=== PATIENT | male | born 1960 | race Caucasian/White ===

== ENCOUNTER 2017-10-04 11:23 | Observation (INO) ==
--- NOTE | 2017-10-04 11:29 | Emergency Department Note ---
Neuro HPI - General Chief Complaint: Neuro Symptoms/Deficit Stated Complaint: Slurred speech Time Seen by Provider: 10/04/17 11:26 - History of Present Illness HPI Narrative: In the last half hour to 45 minutes this patient was noted by his to have slurred speech perhaps some left facial droop and possible numbness in the right arm. All the symptoms have resolved. Patient has no history of stroke coronary artery disease. Does have a history of hypertension and mild COPD. He has had a slight headache for the last several days. He takes no blood thinners. Patient did have a screening of his carotid arteries and last 3 months it is reported be normal. - Related Data Home Medications: Home Medications Medication Instructions Recorded Confirmed Losartan [Cozaar] 100 mg PO DAILY 10/04/17 10/04/17 Allergies/Adverse Reactions: Allergies Allergy/AdvReac Type Severity Reaction Status Date / Time No Known Drug Allergies Allergy Unverified 10/04/17 11:24 Review of Systems All systems ED: reviewed and negative except as stated. Past Medical History - Past Medical History Medical history: Reports: COPD, hypertension Physical Exam Limitations: no limitations General appearance: alert Head: atraumatic Eye: Present: normal appearance ENT: normal exam Neck: Present: normal inspection Chest: Present: normal inspection Respiratory: Present: normal lung sounds bilaterally Cardiovascular: Present: regular rate, normal rhythm, normal heart sounds Abdominal: Present: soft. Absent: distention, tenderness Neurological: Present: alert Speech: Present: fluid speech Cranial nerves: facial palsy (VII): Normal Cerebellar function: finger to nose: Normal Motor strength - LUE: 5/5 Motor strength - RUE: 5/5 Motor strength - LLE: 5/5 Motor strength - RLE: 5/5 Psychiatric: Present: normal affect, normal mood Skin: Present: warm, dry, intact Course Vital Signs Temperature 98.3 F 10/04/17 11:24 Pulse Rate 78 10/04/17 11:24 Respiratory Rate 18 10/04/17 11:24 Blood Pressure 163/103 10/04/17 11:24 Pulse Oximetry (%) 98 10/04/17 11:24 Temperature 98.3 F 10/04/17 11:24 Pulse Rate 69 10/04/17 12:22 Respiratory Rate 13 10/04/17 12:22 Blood Pressure 149/101 10/04/17 12:16 Pulse Oximetry (%) 96 10/04/17 12:22 Neuro Symptoms/Deficit - MDM Narrative Medical decision making narrative: CT scan lab work were normal. Patient is an ABCD score of 4 but an NIH of 0 currently. We will admit him to the hospital as a TIA for further workup. - Lab Data Lab results reviewed: Yes I reviewed the patient's lab results. Result diagrams: 10/04/17 11:35 10/04/17 11:35 Lab Results 10/04/17 10/04/17 10/04/17 Range/Units 11:35 11:35 11:35 WBC 10.6 (4.5-11.0) K/mcL RBC 5.30 (4.50-5.90) M/mcL Hgb 16.2 (13.5-16.5) g/dL Hct 48.3 (41.0-55.0) % POC Hct 49.0 (41.0-55.0) % MCV 91.3 (80.0-100.0) fL MCH 30.6 (26.0-34.0) pg MCHC 33.5 (31.0-36.0) g/dL RDW 13.8 (11.5-14.5) % Plt Count 249 (140-440) K/mcL MPV 8.2 (7.4-10.4) fL Gran % 60.8 (38.0-78.0) % Lymph % (Auto) 29.4 (15.5-49.0) % [place] % (Auto) 6.9 (1.0-12.0) % Eos % (Auto) 2.4 (0.0-7.0) % Baso % (Auto) 0.5 (0.0-2.0) % Gran # 6.4 (1.8-8.0) K/mcL Lymph # (Auto) 3.1 (1.5-4.8) K/mcL [place] # (Auto) 0.7 (0.1-0.9) K/mcL Eos # (Auto) 0.3 (0.0-0.7) K/mcL Baso # (Auto) 0.1 (0.0-0.3) K/mcL POC PT 11.4 L (11.9-14.5) sec POC INR 0.9 (0.9-1.2) APTT 28 (20-37) sec POC Sodium 138 (133-145) mmol/L Sodium 137 (133-145) mmol/L POC Potassium 3.7 (3.3-5.1) mmol/L Potassium 3.7 (3.3-5.1) mmol/L POC Chloride 97 (96-108) mmol/L Chloride 96 (96-108) mmol/L Carbon Dioxide 28 (22-30) mmol/L POC Total CO2 32 H (22-30) mmol/L Anion Gap 13.0 (8-16) POC BUN 20 (6-20) mg/dl BUN 16 (6-20) mg/dl Creatinine 1.0 (0.7-1.2) mg/dl POC Creatinine 1.0 (0.7-1.2) mg/dl GFR Calculation 83 Glucose 97 (70-105) mg/dL POC Glucose 99 (70-105) mg/dL Calcium 9.2 (8.6-10.4) mg/dl POC WB Ioniz Calcium 1.06 L (1.16-1.32) mmol/L Total Bilirubin 0.6 (0.0-1.0) mg/dL AST 24 (0-37) U/l ALT 27 (0-40) U/l Alkaline Phosphatase 114 (39-117) U/L Troponin T (0-0.03) ng/ml Total Protein 7.3 (5.9-8.4) gm/dL Albumin 4.2 (3.2-5.2) gm/dL Globulin 3.1 (2.2-3.7) gm/dL Albumin/Globulin Ratio 1.4 (1.0-2.3) 10/04/17 Range/Units 11:35 WBC (4.5-11.0) K/mcL RBC (4.50-5.90) M/mcL Hgb (13.5-16.5) g/dL Hct (41.0-55.0) % POC Hct (41.0-55.0) % MCV (80.0-100.0) fL MCH (26.0-34.0) pg MCHC (31.0-36.0) g/dL RDW (11.5-14.5) % Plt Count (140-440) K/mcL MPV (7.4-10.4) fL Gran % (38.0-78.0) % Lymph % (Auto) (15.5-49.0) % [place] % (Auto) (1.0-12.0) % Eos % (Auto) (0.0-7.0) % Baso % (Auto) (0.0-2.0) % Gran # (1.8-8.0) K/mcL Lymph # (Auto) (1.5-4.8) K/mcL [place] # (Auto) (0.1-0.9) K/mcL Eos # (Auto) (0.0-0.7) K/mcL Baso # (Auto) (0.0-0.3) K/mcL POC PT (11.9-14.5) sec POC INR (0.9-1.2) APTT (20-37) sec POC Sodium (133-145) mmol/L Sodium (133-145) mmol/L POC Potassium (3.3-5.1) mmol/L Potassium (3.3-5.1) mmol/L POC Chloride (96-108) mmol/L Chloride (96-108) mmol/L Carbon Dioxide (22-30) mmol/L POC Total CO2 (22-30) mmol/L Anion Gap (8-16) POC BUN (6-20) mg/dl BUN (6-20) mg/dl Creatinine (0.7-1.2) mg/dl POC Creatinine (0.7-1.2) mg/dl GFR Calculation Glucose (70-105) mg/dL POC Glucose (70-105) mg/dL Calcium (8.6-10.4) mg/dl POC WB Ioniz Calcium (1.16-1.32) mmol/L Total Bilirubin (0.0-1.0) mg/dL AST (0-37) U/l ALT (0-40) U/l Alkaline Phosphatase (39-117) U/L Troponin T < 0.01 (0-0.03) ng/ml Total Protein (5.9-8.4) gm/dL Albumin (3.2-5.2) gm/dL Globulin (2.2-3.7) gm/dL Albumin/Globulin Ratio (1.0-2.3) - Radiology Data Radiology results reviewed: Yes I reviewed the patient's radiology results. Disposition Pt seen by ACCOUNTING INSTRUCTOR/PA only: No Clinical Impression: Transient cerebral ischemia Disposition: Xfer As Outpt/Obs ([facility]) Condition: Good Referrals: Tarik Estrada ARNP [Primary Care Provider] - Time of Disposition: 12:41
--- NOTE | 2017-10-04 11:38 | Cat Scan Report ---
CLINICAL INFORMATION: Code stroke COMPARISON: None. TECHNIQUE: 2.5 mm helical slices were obtained in the skull base to vertex. Following reconstruction, axial reformatted images were reviewed at bone and parenchymal windows. The exam was performed using radiation dose optimization techniques including, but not limited to, automated exposure control, adjustment of the mA and/or kV according to patient size and use of iterative reconstruction technique. FINDINGS: The ventricles, sulci, fissures, and cisterns are normal in size and configuration. No extra-axial fluid collections are identified. The cerebrum, brainstem and cerebellum are unremarkable. There is no evidence of hemorrhage, mass effect, or edema. Bone windows show no osseous abnormality. IMPRESSION: Normal head CT without contrast. Interpreted and Authenticated by: Dennys Lawrecne 10/04/17
[2017-10-04 12:01] LABS: Basophils # (Auto) 0.1 K/mcL (0.0-0.3); Basophils % (Auto) 0.5 % (0.0-2.0); Eosinophils # (Auto) 0.3 K/mcL (0.0-0.7); Eosinophils % (Auto) 2.4 % (0.0-7.0); Granulocytes % (Auto) 60.8 % (38.0-78.0); Lymphocytes # (Auto) 3.1 K/mcL (1.5-4.8); Lymphocytes % (Auto) 29.4 % (15.5-49.0); Mean Cell Volume 91.3 fL (80.0-100.0); Mean Corpuscular HGB Conc 33.5 g/dL (31.0-36.0); Mean Corpuscular Hemoglobin 30.6 pg (26.0-34.0); Monocytes # (Auto) 0.7 K/mcL (0.1-0.9); Monocytes % (Auto) 6.9 % (1.0-12.0); Platelet Count 249 K/mcL (140-440); Red Cell Distribution Width 13.8 % (11.5-14.5)
[2017-10-04 12:21] LABS: ALT/SGPT 27 U/l (0-40); Albumin 4.2 gm/dL (3.2-5.2); Albumin/Globulin Ratio 1.4 (1.0-2.3); Alkaline Phosphatase 114 U/L (39-117); Blood Urea Nitrogen 16 mg/dl (6-20)
[2017-10-04] MEDS ORDERED: METOCLOPRAMIDE 10 MG/2 ML VIAL IV ONE (12:31)
[2017-10-04] MEDS ORDERED: HYDROmorphone 2 MG/ML VIAL IV PRN (12:31)
[2017-10-04] MEDS ORDERED: diphenhydrAMINE 50 MG/ML VIAL IV ONE (12:31)
[2017-10-04] MEDS ORDERED: ONDANSETRON 4 MG/2 ML VIAL IV ONE (12:31)
[2017-10-04] MEDS ORDERED: LACTATED RINGERS 1,000 ML IV ONE (12:53)
[2017-10-04 14:41] LABS: Appearance,Urine CLEAR; Bilirubin,Urine NEG (NEG); Color,Urine YELLOW; Glucose,Urine (UA) NEGATIVE (NEG); Leukocyte Esterase,Urine NEG /uL (NEG); Protein,Urine NEG (NEG); Specific Gravity,Urine 1.019 (1.000-1.035); Urine Blood NEG mg/dL (<0.03); Urobilinogen,Urine NEG (NEG)
[2017-10-04] MEDS ORDERED: GADOBUTROL 15 MMOL/15 ML VIAL IV ONE (14:49)
[2017-10-04] MEDS ORDERED: ACETAMINOPHEN 325 MG TABLET PO PRN (15:17)
[2017-10-04 16:00] LABS: Hemoglobin A1C 5.7 % HGB (4.0-6.0)
[2017-10-04] MEDS: oxyCODONE/APAP 5/325MG TABLET PO PRN ×2 (16:27→21:09)
[2017-10-04] MEDS: 0.9 % SODIUM CHLORIDE 10 ML SYRINGE IV SCH ×3 (16:30→22:06)
--- NOTE | 2017-10-04 16:53 | Internal Med History&Physical ---
Medical - H&P: HPI Patient information: Note initiated : 10/04/17 at 4:53 pm Service Date, if different from initiated Date: [] Patient: Abilio Prasad 57 y/o M admitted on 10/04/17 for Slurred speech. Chief Complaint: Garbled speech and left facial droop History of present illness: The patient is a 57-year-old male with a history of hypertension, COPD, depression, cervical spinal fusion who presents with having experienced left facial drooping and speech disruption. Patient states that he developed a headache 6 days prior to presentation. This was about 3 days after having cataract surgery. On the day the headache started , is up to 9/10 in intensity had a fever to 102. He's had no further fever, however his headache has persisted. Originally it was frontal, though he gets pain on the top of his head when he coughs. This improves overnight, is mild when he awakes but by afternoon it's up to 9/10 in intensity. He's had some nausea associated with it, is also had worsening of it when he bends over. Sometimes he feels dizzy, but which she feels his equilibrium is off. In the setting of this, this morning, while lying on the couch document his , his speech suddenly became garbled and she noticed that the left side of his face was drooping. He also reported transient right arm numbness, stating it felt "". He does not have much recall this, but his , who is a nurse, gives good history. She estimates it lasted about 3 minutes. During this time , his motor strength was equal on both sides. Patient has not had similar episodes before. He's had paresthesias and arm symptoms associated with his cervical spine in the past. He's had multilevel fusion done on that. He had a carotid ultrasound done, sounds like it was for screening reasons a while ago which was reported with a partial blockage, however he follow-up ultrasound 6 months ago showed no blockage. 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 Patient does not have a history of central cerebrovascular disease. No history of coronary disease or peripheral arterial disease. No history of headache, no history of migraine. Patient has chronic lower back pain, has had epidural injections. This is been unchanged. No further fever. No rhinorrhea, no sinus congestion, no sore throat, no cough or sputum production, no emesis, no diarrhea, no abdominal pain. No history of diabetes, no history of thyroid disease. Last time his cholesterol was checked it was not requiring treatment. Patient's pain hospitalized for monitoring and further evaluation of transient ischemic attack. 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 He chews tobacco, stopped smoking 4-5 years ago. He occasionally drinks beer. Medical - H&P: Meds Home Medications Medication Instructions Recorded Confirmed Type Albuterol Sulfate [Ventolin] 2 puff INH Q4HP PRN 10/04/17 10/04/17 History Aspirin [Adult Low Dose Aspirin EC] 81 mg PO DAILY 10/04/17 10/04/17 History Baclofen [Lioresal] 10 mg PO QHS 10/04/17 10/04/17 History Losartan [Cozaar] 100 mg PO DAILY 10/04/17 10/04/17 History Pantoprazole [Protonix] 40 mg PO QAMAC 10/04/17 10/04/17 History Pregabalin [Lyrica] 75 mg PO DAILY 10/04/17 10/04/17 History Stiolto Respimat Inhal [place] 2 inh QDAY 10/04/17 10/04/17 History Vitamin D3 Complete Caplet 10,000 unit PO QDAY 10/04/17 10/04/17 History buPROPion [Wellbutrin] 75 mg PO DAILY 10/04/17 10/04/17 History Allergies Allergy/AdvReac Type Severity Reaction Status Date / Time No Known Drug Allergies Allergy Unverified 10/04/17 11:24 Medical - H&P: Exam - Constitutional Vitals: Temp Pulse Resp BP Pulse Ox 98.4 F 79 16 151/71 96 10/04/17 15:17 10/04/17 14:45 10/04/17 15:17 10/04/17 15:17 10/04/17 15:17 GENERAL: Alert, in no acute distress. Cooperative, appears stated age. HEENT: Atraumatic. Pupils 5 mm and briskly reactive to direct and indirect light. Extraocular movements are intact without vertical nystagmus, few beats of physiologic nystagmus bilaterally. Face is symmetric. Tongue is midline, palate rises symmetrically. Strength in the face, tongue and shoulder shrug is 5/5. Oropharynx is without erythema or exudate. NECK: Supple without meningismus, no thyromegaly RESPIRATORY: Breath sounds clear bilaterally without wheezes or rhonchi. Respiratory effort is unlabored. CARDIOVASCULAR: Regular rate and rhythm, no murmur gallop or rub. No peripheral edema. Carotid pulses 2+ without bruit. Pedal pulses 2+. GI: Abdomen soft, nontender, no guarding or rebound. Bowel sounds are present. No hepatosplenomegaly. LYMPHATIC: No cervical or supraclavicular lymphadenopathy MUSCULOSKELETAL: No joint erythema or swelling, normal range of motion in all 4 extremities. Muscle mass normal. SKIN: Intact, warm, dry. No lesions. Skin turgor normal. NEUROLOGIC: Cranial nerves II through XII tested and intact as described above. Motor is 5/5 at the site leader, biceps, triceps, hip flexors, knee flexors and extensors, ankle flexors and extensors. Deep tendon reflexes are 3+ at the patella bilaterally, 2+ at the biceps bilaterally. Muscle tone is normal. Finger to nose testing is intact bilaterally, heel to goetz is intact bilaterally. There is no pronator drift. PSYCHIATRIC: Alert, oriented x3, normal affect, normal insight. Medical - H&P: Reslt - Labs CBC & Chem 7: 10/04/17 11:35 10/04/17 11:35 Labs: Short CBC 10/04/17 Range/Units 11:35 WBC 10.6 (4.5-11.0) K/mcL Hgb 16.2 (13.5-16.5) g/dL Hct 48.3 (41.0-55.0) % Plt Count 249 (140-440) K/mcL BMP 10/04/17 11:35 Sodium 137 Potassium 3.7 Chloride 96 Carbon Dioxide 28 BUN 16 Creatinine 1.0 Glucose 97 Calcium 9.2 Cardiac Enzymes 10/04/17 Range/Units 11:35 Troponin T < 0.01 (0-0.03) ng/ml Liver Function 10/04/17 Range/Units 11:35 Total Bilirubin 0.6 (0.0-1.0) mg/dL AST 24 (0-37) U/l ALT 27 (0-40) U/l Alkaline Phosphatase 114 (39-117) U/L Albumin 4.2 (3.2-5.2) gm/dL Urine 10/04/17 Range/Units 13:42 Urine Color Yellow Urine Appearance Clear Urine pH 6.0 (5.0-9.0) Ur Specific [place] 1.019 (1.000-1.035) Urine Protein Neg (NEG) mg/dL Urine Glucose (UA) Negative (NEG) mg/dL - EKG Data -: EKG Reviewed by Myself - Imaging and Cardiology CT scan - head Status: image reviewed by me Additional comments: FINDINGS: The ventricles, sulci, fissures, and cisterns are normal in size and configuration. No extra-axial fluid collections are identified. The cerebrum, brainstem and cerebellum are unremarkable. There is no evidence of hemorrhage, mass effect, or edema. Bone windows show no osseous abnormality. IMPRESSION: Normal head CT without contrast. Medical - H&P: A/P (1) Transient cerebral ischemia Current visit: Yes Status: Acute (2) Hypertension Current visit: Yes Status: Acute (3) Headache Current visit: Yes Status: Acute - Narrative A/P Narrative: 57-year-old male presents with transient dysarthria/garbled speech as well as left facial droop, resolved spontaneously prior to admission. Suspicious for transient ischemic attack. TIA. Concern for cerebral ischemia. Risk factors include hypertension and history of smoking. Neurologic exam is normal at this point. Plan: Observation hospitalization, MRI to evaluate for definitive evidence of stroke, MRA to evaluate cerebral circulation, echocardiogram to evaluate for embolic source, telemetry monitoring for arrhythmia. Currently no need for therapy intervention as he is back to baseline. Add statin to his therapy, check lipid profile in the morning. Hypertension. Blood pressure initially a bit elevated, could be secondary to transient cerebral ischemia. For now will monitor, allow some permissive hypertension and not treat too aggressively. Plan: Continue with his home losartan, do not aggressively control blood pressure in the first 24 hours. Headache. Unclear etiology. No history of migraine. His symptoms today could be related to a headache syndrome. No obvious abnormalities, no evidence of hemorrhage on CT. MRI may more definitively evaluate for underlying abnormality. Plan: Symptomatic control, MRI as above. Prophylaxis: No need for DVT prophylaxis, low risk and ambulatory. CODE STATUS: Full code. Medical - H&P: Qual - Stroke Onset of Symptoms Date: 10/04/17 Onset of Symptoms Time: 12:00 Symptom Onset Unknown: No - VTE Deep Vein Thrombosis/Pulmonary Embolism Present on Admission: No
[2017-10-04] MEDS: LORazepam 2 MG/ML VIAL IV PRN (18:05)
[2017-10-04] MEDS: ATORVASTATIN 20 MG TABLET PO SCH (20:58)
[2017-10-05 06:02] LABS: HDL Cholesterol 33 mg/dl (>40); LDL Cholesterol,Calculated 81 mg/dl (SEE CHART)
--- NOTE | 2017-10-05 06:49 | Magnetic Resonance Report ---
CLINICAL INFORMATION: TIA COMPARISON: None. TECHNIQUE:2D and [id number] and 3D MOTSA tutc-[id number] images were obtained prior to gadolinium. Following gadolinium, coronal 3D [id number] images were acquired. FINDINGS: The thoracic aortic arch is normal in contour/caliber and aortic branching is conventional. There is a 50% focal stenosis in the mid right common carotid artery and a 50% stenosis in the mid left common carotid artery. In addition, a 50% stenosis is seen in the proximal right internal carotid artery with a 40% stenosis seen at the left internal carotid artery origin. IMPRESSION: Mild stenoses in both mid common and proximal internal carotid arteries - as described Interpreted and Authenticated by: Dennys Lawrence 10/05/17
--- NOTE | 2017-10-05 06:53 | Magnetic Resonance Report ---
CLINICAL INFORMATION: TIA upper extremity weakness COMPARISON: None. TECHNIQUE:Sagittal T1 FLAIR, axial T1 FLAIR, T2 FLAIR propeller, T2 propeller, gradient, diffusion, ADC and coronal T2 weighted images were acquired. FINDINGS: The ventricles, sulci, fissures and cisterns show mild symmetric enlargement compatible with minimal age-related atrophy - no extra-axial fluid collections or masses are appreciated. Scattered chronic ischemic foci in the the cerebral white matter are typical for age. There is a 5 mm remote lacunar infarct in the left frontal white matter - adjacent to the frontal horn of the left lateral ventricle. There are no regions of restricted diffusion to suggest acute infarct. No edema, hemorrhage or mass effect. Signal void in intracerebral arteries, extra-axial cranial nerves, pituitary and orbits are normal. 2.3 cm polyp in the right maxillary sinus appreciated. There is also moderate left and mild right mastoiditis IMPRESSION: 1. No evidence of acute infarct, hemorrhage or other acute intracerebral abnormality 2. Mild atrophy and scattered chronic ischemic changes in the cerebral white matter typical for age 3. 5 mm remote lacunar infarct in the deep periventricular left frontal white matter 4. Moderate left and mild right mastoiditis. 5. 2.2 cm polyp right maxillary sinus - other paranasal sinuses are clear Interpreted and Authenticated by: Dennys Lawrence 10/05/17
--- NOTE | 2017-10-05 06:56 | Magnetic Resonance Report ---
CLINICAL INFORMATION: TIA COMPARISON: None. TECHNIQUE: 3D [id number] SPGR was used to study the cerebral vasculature. FINDINGS: The intracranial internal carotid, vertebral and basilar arteries are unremarkable. There is a 50% stenoses in the inferior division of M2 left middle cerebral artery. The P1 segment of the left posterior cerebral arteries and hypoplastic, but a normal left posterior cerebral artery has an embryonic origin off the supraclinoid left ICA. The remainder of the anterior, middle and posterior arteries and branches are unremarkable. IMPRESSION: 1. 50% stenosis inferior division left M2 middle cerebral artery. 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 This is a congenital variant Interpreted and Authenticated by: Dennys Lawrence 10/05/17
[2017-10-05] MEDS: PANTOPRAZOLE 40 MG TABLET PO SCH (08:10)
[2017-10-05] MEDS: PREGABALIN 75 MG CAPSULE PO SCH (08:24)
[2017-10-05] MEDS: 0.9 % SODIUM CHLORIDE 10 ML SYRINGE IV SCH ×3 (08:24→21:46)
[2017-10-05] MEDS: oxyCODONE/APAP 5/325MG TABLET PO PRN ×2 (08:24→17:09)
[2017-10-05] MEDS: ONDANSETRON 4 MG/2 ML VIAL IV PRN (08:24)
[2017-10-05] MEDS: ASPIRIN 325 MG ENTERIC COATED TABLET PO SCH (08:25)
[2017-10-05] MEDS: LOSARTAN 50 MG TABLET PO SCH (08:25)
--- NOTE | 2017-10-05 13:46 | XRay Report ---
CLINICAL INFORMATION: Fever and obtundation - evaluate for meningitis. TECHNIQUE: The procedure and risks including the possibility of bleeding, infection, CSF leak requiring blood patch were explained to the patient. They understood and wished to proceed. Under fluoroscopic guidance, the right L2-3 intralaminar space was marked, prepped and locally anesthetized with 1% Lidocaine using a 25 gauge needle. A 22 gauge spinal needle was placed under fluoroscopy through the intralaminar space into the thecal sac. Approximately six cc of clear CSF was aspirated and sent to pathology for requested studies. There was no apparent complication. The patient tolerated procedure well. IMPRESSION: Successful fluoroscopic guided lumbar puncture yielding 6 cc of clear CSF. No apparent complications. Interpreted and Authenticated by: Dennys Lawrence 10/05/17
[2017-10-05 14:54] LABS: Glucose,CSF 52 mg/dL (45-75)
[2017-10-05 15:42] LABS: Appearance,CSF HAZY; Nucleated Cells,CSF 150 /cumm (0-5); Red Blood Cell,CSF 823 /cumm (0-1)
[2017-10-05 15:54] LABS: Lymphocytes,CSF 79 % (40-80); Monocytes,CSF 20 % (15-45); Neutrophils,CSF 1 % (0-6); Total Cell Ct,CSF 100
[2017-10-05] MEDS: buPROPion 75 MG TABLET PO SCH (16:07)
[2017-10-05] MEDS ORDERED: KETOROLAC 30 MG/ML VIAL IV ONE (16:30)
[2017-10-05] MEDS ORDERED: KETOROLAC 15 MG/ML VIAL ONE (17:11)
--- NOTE | 2017-10-05 17:45 | Internal Med Progress Note ---
Medical - PN: Subj Patient information: Note initiated : 10/05/17 at 5:42 pm Service Date, if different from initiated Date: [] Patient: Abilio Prasad 57 y/o M admitted on 10/04/17 for Slurred speech. Chief Complaint: f/u TIA Interval history: 10/04 The patient is a 57-year-old male with a history of hypertension, COPD, depression, cervical spinal fusion who presents with having experienced left facial drooping and speech disruption. Patient states that he developed a headache 6 days prior to presentation. This was about 3 days after having cataract surgery. On the day the headache started , is up to 9/10 in intensity had a fever to 102. He's had no further fever, however his headache has persisted. Originally it was frontal, though he gets pain on the top of his head when he coughs. This improves overnight, is mild when he awakes but by afternoon it's up to 9/10 in intensity. He's had some nausea associated with it, is also had worsening of it when he bends over. Sometimes he feels dizzy, but which she feels his equilibrium is off. In the setting of this, this morning, while lying on the couch document his , his speech suddenly became garbled and she noticed that the left side of his face was drooping. He also reported transient right arm numbness, stating it felt "". He does not have much recall this, but his , who is a nurse, gives good history. She estimates it lasted about 3 minutes. During this time , his motor strength was equal on both sides. Patient has not had similar episodes before. He's had paresthesias and arm symptoms associated with his cervical spine in the past. He's had multilevel fusion done on that. He had a carotid ultrasound done, sounds like it was for screening reasons a while ago which was reported with a partial blockage, however he follow-up ultrasound 6 months ago showed no blockage. 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 Patient does not have a history of central cerebrovascular disease. No history of coronary disease or peripheral arterial disease. No history of headache, no history of migraine. Patient has chronic lower back pain, has had epidural injections. This is been unchanged. No further fever. No rhinorrhea, no sinus congestion, no sore throat, no cough or sputum production, no emesis, no diarrhea, no abdominal pain. No history of diabetes, no history of thyroid disease. Last time his cholesterol was checked it was not requiring treatment. Patient's being hospitalized for monitoring and further evaluation of transient ischemic attack. 10/06 Neurologically has remained stable and nonfocal. Tele is NSR. His headache persists. Further history is obtained, he had fever for about 36 hours after his headache started. He now reports that he had some stiffness of his neck at the time. He mentioned that to his previously. MRI is without evidence of ischemia or infarction. MRA of the head with 50% stenosis in the inferior branch of the left MCA and congenital variant of left vertebral. MRA of the neck with mild stenoses. Given his history of fever, headache, neck stiffness occurring a week ago with persistent headache, LP is ordered. - Constitutional Vitals: Vital Signs Temp Pulse Resp BP Pulse Ox 97.8 F 64 16 162/87 93 10/05/17 15:00 10/05/17 08:00 10/05/17 15:00 10/05/17 15:00 10/05/17 15:00 Period Temp Pulse Resp BP Sys/Wilhelm Pulse Ox Last 24 Hr 97.8 F-98.8 F 64-74 16-20 131-166/80-93 92-98 Intake and Output 10/05/17 10/05/17 10/05/17 05:59 13:59 21:59 Intake Total 700 / 700 0 / 0 640 / 640 Output Total 325 / 325 Balance 375 / 375 0 / 0 640 / 640 Intake & Output: Intake & Output 10/05/17 10/05/17 10/05/17 05:59 13:59 21:59 Intake Total 700 / 700 0 / 0 640 / 640 Output Total 325 / 325 Balance 375 / 375 0 / 0 640 / 640 Intake: Oral 700 / 700 0 / 0 640 / 640 Output: Void Amount 325 / 325 Other: Meal Breakfast Percent of Meal Consumed Refused # Voids 1 4 Exam: General: Comfortable, no distress Chest: Clear, unlabored Microvascular: Regular, no murmur Abdomen: Soft, nontender Neuro: Alert, oriented to person, place, situation. Face is symmetric. Speech is fluent. Strength 5/5 in left and right. Medical - PN: Obj Da - Labs CBC & Chem 7: 10/04/17 11:35 10/04/17 11:35 Labs: Abnormal Lab Results 10/05/17 10/05/17 10/04/17 13:08 03:45 11:35 POC PT POC Total CO2 32 H POC WB Ioniz Calcium 1.06 L HDL Cholesterol 33 L CSF RBC 823 H CSF Total Nucleated Auto 150 H CSF Total Protein 309 H 10/04/17 11:35 POC PT 11.4 L POC Total CO2 POC WB Ioniz Calcium HDL Cholesterol CSF RBC CSF Total Nucleated Auto CSF Total Protein Meds: Medications Acetaminophen (Tylenol) 650 mg PO Q6HP PRN PRN Reason: PAIN/FEVER > 101 Aspirin (Ecotrin) 325 mg PO DAILY [facility] Last Admin: 10/05/17 08:25 Dose: 325 mg Atorvastatin Calcium (Lipitor) 40 mg PO HS [facility] Last Admin: 10/04/17 20:58 Dose: 40 mg Bupropion HCl (Wellbutrin) 75 mg PO DAILY [facility] Last Admin: 10/05/17 16:07 Dose: 75 mg Ketorolac Tromethamine (Toradol) 30 mg IV ONCE ONE Stop: 10/05/17 16:31 Last Admin: 10/05/17 17:10 Dose: 30 mg Lorazepam (Ativan) 1 mg IV Q2-4HP PRN PRN Reason: ANXIETY/SEDATION Last Admin: 10/04/17 18:05 Dose: 1 mg Losartan Potassium (Cozaar) 100 mg PO DAILY [facility] Last Admin: 10/05/17 08:25 Dose: 100 mg Morphine Sulfate (Morphine) 5 mg IV Q2HP PRN PRN Reason: Pain Last Admin: 10/05/17 14:32 Dose: 5 mg Ondansetron HCl (Zofran) 4 mg IV Q4HP PRN PRN Reason: Nausea And Vomiting Last Admin: 10/05/17 08:24 Dose: 4 mg Oxycodone/Acetaminophen (Percocet 5-325 Mg) 1 tab PO Q4HP PRN PRN Reason: PAIN LEVEL 3-6 Last Admin: 10/05/17 17:09 Dose: 1 tab Pantoprazole Sodium (Protonix) 40 mg PO QAMAC [facility] Last Admin: 10/05/17 08:10 Dose: 40 mg Stiolto Respimat (Inhaler) 2 dose INH QDAY [facility] Last Admin: 10/05/17 11:52 Dose: Not Given Prednisolone Acetate (Pred Forte Ophth Drops) 1 gtt OD QIDP [facility] Pregabalin (Lyrica) 75 mg PO DAILY [facility] Last Admin: 10/05/17 08:24 Dose: 75 mg Sodium Chloride (Saline Flush) 10 ml IV Q8 [facility] Last Admin: 10/05/17 16:08 Dose: 10 ml - Impressions MRI Brain IMPRESSION: 1. No evidence of acute infarct, hemorrhage or other acute intracerebral abnormality 2. Mild atrophy and scattered chronic ischemic changes in the cerebral white matter typical for age 3. 5 mm remote lacunar infarct in the deep periventricular left frontal white matter 4. Moderate left and mild right mastoiditis. 5. 2.2 cm polyp right maxillary sinus - other paranasal sinuses are clear MRA Head IMPRESSION: 1. 50% stenosis inferior division left M2 middle cerebral artery. 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 This is a congenital variant MRA Neck FINDINGS: The thoracic aortic arch is normal in contour/caliber and aortic branching is conventional. There is a 50% focal stenosis in the mid right common carotid artery and a 50% stenosis in the mid left common carotid artery. In addition, a 50% stenosis is seen in the proximal right internal carotid artery with a 40% stenosis seen at the left internal carotid artery origin. IMPRESSION: Mild stenoses in both mid common and proximal internal carotid arteries- as described Echo Pending Medical - PN: A/P - Time Spent With Patient Total time spent is greater than 50% in coordination of care (as documented) at patient's floor/unit and/or counseling patient: Greater than 35 minutes (1) Transient cerebral ischemia Status: Acute Current Visit: Yes (2) Hypertension Status: Acute Current Visit: Yes (3) Headache Status: Acute Current Visit: Yes - Narrative A/P Narrative: 57-year-old male presents with transient dysarthria/garbled speech as well as left facial droop, resolved spontaneously prior to admission. Suspicious for transient ischemic attack. TIA. Concern remains that this was a TIA. Unclear if related to 50% stenosis of inferior branch of left MCA. Neurologic exam remains normal. Will need aggressive risk factor modification. Plan: Increase aspirin to 325 mg daily, continue high potency statin started at admission, f/u echo. Neuro checks. Hypertension. Blood pressure initially a bit elevated, could be secondary to transient cerebral ischemia. Will now begin to add PRN medications for better blood pressure control. Home SBP's usually in 115 range. Plan: Continue with his home losartan, do not aggressively control blood pressure in the first 24 hours. Headache. New history of neck stiffness and fever at first. LP shows normal glucose, but abnormal protein of 309. Lymphocytosis and no organismas on gram stain and no PMN's. Most consistent with aseptic meningitis. Plan: Will send viral PCR and f/u cryptococcus Ag and VDRL. No antibiotics at this time, continue to monitor and follow-up culture. Medical - PN: Qual - Stroke Onset of Symptoms Date: 10/04/17 Onset of Symptoms Time: 12:00 Symptom Onset Unknown: No - VTE Deep Vein Thrombosis/Pulmonary Embolism Present on Admission: No
[2017-10-05] MEDS ORDERED: cloNIDine HCL 0.1 MG TABLET PO PRN (17:58)
[2017-10-05] MEDS ORDERED: LABETALOL 5 MG/ML ML IV PRN (17:58)
[2017-10-05] MEDS: ATORVASTATIN 20 MG TABLET PO SCH (21:20)
[2017-10-05] MEDS: LORazepam 2 MG/ML VIAL IV PRN (21:20)
[2017-10-05] MEDS: prednisoLONE 1% OPHTH DROPS 1ML BOTTLE OD SCH (21:21)
[2017-10-06] MEDS: oxyCODONE/APAP 5/325MG TABLET PO PRN ×2 (00:20→09:13)
[2017-10-06] MEDS: 0.9 % SODIUM CHLORIDE 10 ML SYRINGE IV SCH (05:49)
[2017-10-06 06:09] LABS: Basophils # (Auto) 0 K/mcL (0.0-0.3); Basophils % (Auto) 0.4 % (0.0-2.0); Eosinophils # (Auto) 0.4 K/mcL (0.0-0.7); Eosinophils % (Auto) 3.7 % (0.0-7.0); Granulocytes % (Auto) 70.4 % (38.0-78.0); Lymphocytes # (Auto) 2.1 K/mcL (1.5-4.8); Lymphocytes % (Auto) 21.5 % (15.5-49.0); Mean Cell Volume 92.3 fL (80.0-100.0); Mean Corpuscular HGB Conc 33.5 g/dL (31.0-36.0); Mean Corpuscular Hemoglobin 30.9 pg (26.0-34.0); Monocytes # (Auto) 0.4 K/mcL (0.1-0.9); Platelet Count 222 K/mcL (140-440); RBC 4.88 M/mcL (4.50-5.90); Red Cell Distribution Width 13.9 % (11.5-14.5)
[2017-10-06 06:21] LABS: Blood Urea Nitrogen 16 mg/dl (6-20)
[2017-10-06] MEDS: prednisoLONE 1% OPHTH DROPS 1ML BOTTLE OD SCH (09:14)
[2017-10-06] MEDS: buPROPion 75 MG TABLET PO SCH (09:14)
[2017-10-06] MEDS: PANTOPRAZOLE 40 MG TABLET PO SCH (09:14)
[2017-10-06] MEDS: PREGABALIN 75 MG CAPSULE PO SCH (09:14)
[2017-10-06] MEDS: ASPIRIN 325 MG ENTERIC COATED TABLET PO SCH (09:14)
[2017-10-06] MEDS: LOSARTAN 50 MG TABLET PO SCH (09:14)
--- NOTE | 2017-10-06 12:02 | Discharge Summary ---
Medical - DS: Prov Patient information: Note initiated : 10/06/17 at 11:58 am Service Date, if different from initiated Date: [] Patient: Abilio Prasad 57 y/o M admitted on 10/04/17 for Slurred speech. Date of admission: 10/04/17 14:48 Discharge date: 10/06/17 Primary care physician: HEIDY Rice Attending physician on admission: Jessica Muhammad Consults: 10/04/17 12:31 Consult to Physician [CONS] Stat Comment: Consulting Provider: Jessica Muhammad Reason For Exam: Physician to Consult Attending physician on discharge: Jessica Muhammad Medical - DS: Meds - Discharge Medications Prescriptions: Atorvastatin [Lipitor] 40 mg PO HS #30 tab Ondansetron [Zofran Odt] 8 mg PO Q6H PRN #15 tab PRN Reason: Nausea And Vomiting oxyCODONE/APAP [Percocet 5-325 mg] 1 tab PO Q4HP PRN #15 tab PRN Reason: Pain Level 3-6 Active and Home Medications: Home Medications Albuterol Sulfate [Ventolin] 2 puff INH Q4HP PRN 10/04/17 [History Confirmed Last Taken Unknown] Aspirin [Adult Low Dose Aspirin EC] 81 mg PO DAILY 10/04/17 [History Confirmed 10/04/17 Last Taken Unknown] Baclofen [Lioresal] 10 mg PO QHS 10/04/17 [History Confirmed 10/04/17 Last Taken 10/03/17] Losartan [Cozaar] 100 mg PO DAILY 10/04/17 [History Confirmed 10/04/17 Last Taken Unknown] Pantoprazole [Protonix] 40 mg PO QAMAC 10/04/17 [History Confirmed 10/04/17 Last Taken Unknown] Pregabalin [Lyrica] 75 mg PO DAILY 10/04/17 [History Confirmed 10/04/17 Last Taken 10/04/17 09:00] Stiolto Respimat Inhal [place] 2 inh QDAY 10/04/17 [History Confirmed 10/04/17 Last Taken 10/04/17 09:00] Vitamin D3 Complete Caplet 10,000 unit PO QDAY 10/04/17 [History Confirmed 10/04 Last Taken 10/04/17 09:00] buPROPion [Wellbutrin] 75 mg PO DAILY 10/04/17 [History Confirmed 10/04/17 Last Taken 10/04/17 09:00] prednisoLONE 1% OPHTH DROPS [Pred Forte Ophth Drops] 1 gtt QIDP 10/04/17 [ History Confirmed 10/04/17 Last Taken 10/04/17 09:00] Medical - DS: Hosp Hospital course: In summary: The patient was admitted after having episode of garbled speech, facial droop, right arm numbness at home. This was consistent with transient ischemic attack. Evaluation revealed normal sinus rhythm on telemetry. Echocardiogram results are pending. MRI showed no acute infarct. MRA results as noted below, 50% stenosis in the inferior branch of the left MCA, query whether this could have been involved in his symptoms. He was on 81 mg aspirin admission, this is increased to 325 mg and high potency statin was added to his regimen. The patient also was complaining of headache, it had been ongoing for over a week. Further history is obtained that he had febrile illness at the time of his headache and he then volunteered that he had neck stiffness at that time. Lumbar puncture was obtained, results were consistent with aseptic meningitis. He is monitored overnight, cultures were without growth, Gram stain showed no organisms, glucose was normal and protein was elevated at 309. It is mostly lymphocytes on differential, as outlined below. Cryptococcal antigen, VDRL, HSV , VZV and enteroviral studies are pending. He was provided with symptomatic treatment for pain and nausea. Hospital Course: 10/04 The patient is a 57-year-old male with a history of hypertension, COPD, depression, cervical spinal fusion who presents with having experienced left facial drooping and speech disruption. Patient states that he developed a headache 6 days prior to presentation. This was about 3 days after having cataract surgery. On the day the headache started , is up to 9/10 in intensity had a fever to 102. He's had no further fever, however his headache has persisted. Originally it was frontal, though he gets pain on the top of his head when he coughs. This improves overnight, is mild when he awakes but by afternoon it's up to 9/10 in intensity. He's had some nausea associated with it, is also had worsening of it when he bends over. Sometimes he feels dizzy, but which she feels his equilibrium is off. In the setting of this, this morning, while lying on the couch document his , his speech suddenly became garbled and she noticed that the left side of his face was drooping. He also reported transient right arm numbness, stating it felt "". He does not have much recall this, but his , who is a nurse, gives good history. She estimates it lasted about 3 minutes. During this time , his motor strength was equal on both sides. Patient has not had similar episodes before. He's had paresthesias and arm symptoms associated with his cervical spine in the past. He's had multilevel fusion done on that. He had a carotid ultrasound done, sounds like it was for screening reasons a while ago which was reported with a partial blockage, however he follow-up ultrasound 6 months ago showed no blockage. 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 Patient does not have a history of central cerebrovascular disease. No history of coronary disease or peripheral arterial disease. No history of headache, no history of migraine. Patient has chronic lower back pain, has had epidural injections. This is been unchanged. No further fever. No rhinorrhea, no sinus congestion, no sore throat, no cough or sputum production, no emesis, no diarrhea, no abdominal pain. No history of diabetes, no history of thyroid disease. Last time his cholesterol was checked it was not requiring treatment. Patient's being hospitalized for monitoring and further evaluation of transient ischemic attack. 10/05 Neurologically has remained stable and nonfocal. Tele is NSR. His headache persists. Further history is obtained, he had fever for about 36 hours after his headache started. He now reports that he had some stiffness of his neck at the time. He mentioned that to his previously. MRI is without evidence of ischemia or infarction. MRA of the head with 50% stenosis in the inferior branch of the left MCA and congenital variant of left vertebral. MRA of the neck with mild stenoses. Given his history of fever, headache, neck stiffness occurring a week ago with persistent headache, LP is ordered. 10/06 Feeling better today. Headache not quite as bad. Single dose of Toradol helped. Lumbar puncture revealed normal glucose at 52, elevated protein at 309. 150 white cells, 823 red cells. 79% neutrophils, 20% monocytes, 1% neutrophils on differential. Ben stain showed no organisms, many mononuclear cells, few red cells. Culture is no growth. While the protein is high, this is most consistent with an aseptic meningitis, suspected viral. Cryptococcal antigen, VDRL, HSV, VZV and enteroviral studies are pending. Discharge diagnosis: Transient ischemic attack Secondary discharge diagnosis: Aseptic meningitis - Time Spent with Patient Total time spent providing and/or coordinating discharge services: Greater than 30 minutes Medical - DS: Exam - Constitutional Vitals: Vital Signs Temp Pulse Resp BP Pulse Ox 10/06/17 04:00 97.8 F 67 14 1201/64 95 10/06/17 00:05 98.8 F 16 169/91 94 10/05/17 20:00 66 96 10/05/17 19:00 98.3 F 16 150/81 96 10/05/17 18:05 93 10/05/17 15:00 97.8 F 16 162/87 93 Intake and Output 10/05/17 10/06/17 10/06/17 21:59 05:59 13:59 Intake Total 640 / 640 Output Total 500 / 500 Balance 640 / 640 -500 / -500 Intake: Oral 640 / 640 Output: Void Amount 500 / 500 Other: # Voids 4 Weight 214 lb 8 oz 214 lb 8 oz Patient Weight 10/07/17 05:59 Weight 214 lb 8 oz Medical - DS: Data Labs on day of discharge: Labs from last 24 hours 10/06/17 10/06/17 10/05/17 04:28 03:28 13:08 WBC 10.0 RBC 4.88 Hgb 15.1 Hct 45.1 MCV 92.3 MCH 30.9 MCHC 33.5 RDW 13.9 Plt Count 222 MPV 8.4 Gran % 70.4 Lymph % (Auto) 21.5 Howard % (Auto) 4.0 Eos % (Auto) 3.7 Baso % (Auto) 0.4 Gran # 7.0 Lymph # (Auto) 2.1 Howard # (Auto) 0.4 Eos # (Auto) 0.4 Baso # (Auto) 0 Sodium 135 Potassium 4.1 Chloride 97 Carbon Dioxide 30 Anion Gap 8.0 BUN 16 Creatinine 0.7 GFR Calculation 104 Glucose 110 H Calcium 8.7 CSF Source Tube #3 CSF Appearance Hazy CSF Color Colorless CSF RBC 823 H CSF Diff Total Count 100 CSF Total Nucleated Auto 150 H CSF Neutrophils 1 CSF Lymphocytes 79 CSF Reactive Lymphs Not Reportable CSF Monocytes 20 CSF Eosinophils % Not Reportable CSF Basophils Not Reportable CSF Macrophages Not Reportable CSF Plasma Cells Not Reportable CSF Diff Comment Not Reportable CSF Glucose 52 CSF Total Protein 309 H CSF VDRL Pending CSF Cryptococcus Ag Pending Preliminary micro results at discharge 10/05/17 13:08 CSF Culture - Preliminary Cerebral Spinal Fluid - Cerebral Spinal Fluid - Impressions MRI Brain IMPRESSION: 1. No evidence of acute infarct, hemorrhage or other acute intracerebral abnormality 2. Mild atrophy and scattered chronic ischemic changes in the cerebral white matter typical for age 3. 5 mm remote lacunar infarct in the deep periventricular left frontal white matter 4. Moderate left and mild right mastoiditis. 5. 2.2 cm polyp right maxillary sinus - other paranasal sinuses are clear MRA Head IMPRESSION: 1. 50% stenosis inferior division left M2 middle cerebral artery. 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 This is a congenital variant MRA Neck FINDINGS: The thoracic aortic arch is normal in contour/caliber and aortic branching is conventional. There is a 50% focal stenosis in the mid right common carotid artery and a 50% stenosis in the mid left common carotid artery. In addition, a 50% stenosis is seen in the proximal right internal carotid artery with a 40% stenosis seen at the left internal carotid artery origin. IMPRESSION: Mild stenoses in both mid common and proximal internal carotid arteries- as described Echo Pending Medical - DS: A/P - Patient/Caregiver Discharge Instructions Activity: increase activity as tolerated Diet: Regular Diet Prescriptions: Atorvastatin [Lipitor] 40 mg PO HS #30 tab Ondansetron [Zofran Odt] 8 mg PO Q6H PRN #15 tab PRN Reason: Nausea And Vomiting oxyCODONE/APAP [Percocet 5-325 mg] 1 tab PO Q4HP PRN #15 tab PRN Reason: Pain Level 3-6 - Problem Maintenance (1) Transient cerebral ischemia Status: Resolved Qualifiers: Transient cerebral ischemia type: other Qualified Code(s): G45.8 - Other transient cerebral ischemic attacks and related syndromes (2) Hypertension Status: Chronic Qualifiers: Hypertension type: essential hypertension Qualified Code(s): I10 - Essential (primary) hypertension (3) Headache Status: Acute Qualifiers: Headache type: unspecified Headache chronicity pattern: acute headache Intractability: intractable Qualified Code(s): R51 - Headache - Follow up Plan Follow up with: Tarik Estrada ARNP [Primary Care Provider] - (3-5 days) Disposition: Home, Self-Care Prognosis: Good Rehab Potential: Good Overall status at discharge: patient is progressing back to baseline Medical - DS: Qual - VTE Deep Vein Thrombosis/Pulmonary Embolism Present on Admission: No
[2017-10-06] MEDS: ONDANSETRON 4 MG/2 ML VIAL IV PRN (12:09)
[2017-10-10 08:39] LABS: VZV Ab (IgM) IFA <1:1 titer
== END 2017-10-06 15:40 | disposition home or self-care (01) ==
LOC: ED 11:23 → ICU 11:23
PROVIDERS: ADMIT Internal Medicine; ATTEND Internal Medicine